=== PATIENT | male | born 1940 | race African-American/Black ===

== ENCOUNTER 2022-05-31 09:08 | Emergency (ER) | payer MEDICARE, OTHER ==
[2022-05-31 12:32] LABS: SARS-CoV-2 NAA Rapid Test Not Detected (NotDetected)
== END 2022-05-31 12:15 | disposition home or self-care (01) ==
LOC: ERS 09:08
DX: R05.9 Cough, unspecified (principal); I10 Essential (primary) hypertension; E78.5 Hyperlipidemia, unspecified; Z20.822 Contact with and (suspected) exposure to COVID-19
CPT/HCPCS: 0240U; 71045

== ENCOUNTER 2023-09-08 15:46 | Outpatient (CLI) | payer MEDICARE, OTHER | END 2023-09-08 15:47 | disposition home or self-care (01) | LOC: BICULT 15:46 | PROVIDERS: ATTEND Family Medicine | DX: N39.43 Post-void dribbling (principal); N28.1 Cyst of kidney, acquired | CPT/HCPCS: 76770 ==

== ENCOUNTER 2024-01-06 08:21 | Outpatient (CLI) | payer OTHER | END 2024-01-06 08:22 | disposition home or self-care (01) | LOC: RAD 08:21 | PROVIDERS: ATTEND Internal Medicine Hematology & Oncology | DX: D47.2 Monoclonal gammopathy (principal); M89.9 Disorder of bone, unspecified | CPT/HCPCS: 77075 ==

== ENCOUNTER 2024-02-04 08:31 | Outpatient (CLI) | payer OTHER ==
[2024-02-04] MEDS ORDERED: Magnevist 469MG/ML 20 ML VIAL ONE (12:08)
== END 2024-02-04 08:32 | disposition home or self-care (01) ==
LOC: MRI 08:31
PROVIDERS: ATTEND Internal Medicine Hematology & Oncology
DX: G56.32 Lesion of radial nerve, left upper limb (principal); D47.2 Monoclonal gammopathy; R93.7 Abnormal findings on diagnostic imaging of other parts of musculoskeletal system; M19.032 Primary osteoarthritis, left wrist